=== PATIENT | female | born 1935 | race Caucasian/White ===

== ENCOUNTER 2020-01-05 16:39 | Inpatient (IN) | payer OTHER ==
[~2020-01-05] VITALS: Ht 152.4 cm; Wt 56.7 kg
[~2020-01-05 16:39] MED LIST: AMBIEN5 MG PO; AMLODIPINE BESYL5 MG PO; CYMBALTA30 MG PO; LEVOTHYROXINE0.1 MG PO; MIRTAZAPINE15 M2 PO; OMEPRAZOLE20 M2 PO; PREDNISONE5 MG PO; VITAMIN B12-FO1 EACH PO; VITAMIN D31000 IU PO
[2020-01-05] MEDS ORDERED: ELIQUIS2.5 M1 PO (17:47)
[2020-01-05] MEDS ORDERED: CYMBALTA60 MG PO (17:48)
[2020-01-05] MEDS ORDERED: LIPITOR80 MG PO (17:48)
[2020-01-05] MEDS ORDERED: WELLBUTRIN SR150 MG PO (17:49)
[2020-01-05] MEDS ORDERED: ISOSORBIDE30 MG PO (17:50)
[2020-01-05] MEDS ORDERED: COZAAR100 MG PO (17:51)
[2020-01-05] MEDS ORDERED: ZANAFLEX4 M1 PO (17:53)
--- NOTE | 2020-01-05 19:00 | NUR ---
LESTER YA a 84 year old F admitted via stretcher from the ADMITTING as a voluntary admission. Arrived on unit at 1900PM. ALLERGIES: NO KNOWN . Vital signs are: [id number] 144/68. The client signed the following forms with stated understanding: Authorization For The Release of Medical Information, Clothing List, Consent to Voluntary Admission and Hospitalization, Consent and Release Forms/Receipt of Rights, Acknowledgement of Advance Directive Information, Behavioral Health Consent Form, and Informed Consent of Medications. Admitted under the services of Dr. SUE MONIQUE,[facility]. A search was conducted and hazardous articles were removed. Client was oriented to the unit. MADHAVI AGUDELO
[2020-01-05 19:34] VITALS: BP 144/68
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
[2020-01-05 20:45] VITALS: BP 144/68
[2020-01-05 21:41] LABS: BILIRUBIN NEGATIVE; BLOOD TRACE-INTACT (NEGATIVE); CLARITY CLOUDY (CLEAR); COLOR YELLOW (YELLOW); GLUCOSE NEGATIVE; KETONE NEGATIVE; PH 6.5 (4.5-8.0)
[2020-01-05 21:42] LABS: LEUKO ESTERASE 3+ (NEGATIVE); NITRITE NEGATIVE (NEGATIVE); UROBILINOGEN 0.2 E.U./dl (0.0-1.0)
[2020-01-05 21:43] LABS: RBC 0-2 rbc/hpf (0-2)
[2020-01-05 21:45] LABS: WBC 51-100 wbc/hpf (0-5)
[2020-01-05 21:46] LABS: YEAST TRACE
[2020-01-05 21:47] LABS: BACTERIA 2+
--- NOTE | 2020-01-05 22:00 | NUR ---
DR CARLOS HERE EARLIER TO SEE CLIENT.
--- NOTE | 2020-01-05 22:58 | NUR ---
DR CARLOS HERE EARLIER TO SEE CLIENT
--- NOTE | 2020-01-06 01:26 | NUR ---
P--DELUSIONS, CONFUSION, ANGER I--PRESENTED REALITY, ORIENTED TO DATE TIME AND PLACE, EMOTIONAL SUPPORT R--YOU'RE A LIAR, I HAVE BEEN HERE ALL DAY, I CAME LAST NIGHT, MY ROOM IS DOWN THE RENTERIA, I NEVER SAID I WAS GOING TO KILL MYSELF, AGAIN YOU'RE ALL LIARS. GET ME OUT OF HERE. P--EMOTIONAL SUPPORT, REDIRECTION, CONTINUE TO MONITOR FOR HER CHANGES
--- NOTE | 2020-01-06 06:00 | NUR ---
WOUND CARE HERE TO SEE CLIENT. INTERMITTENT PERIODS OF SARCASM CONTINUE
[2020-01-06 06:31] LABS: BASO # 0.1 10*3/uL (0.0-0.1); BASO % 0.8 % (0.0-1.0); EOS # 0.3 10*3/uL (0.0-0.4); EOS % 2.6 % (1.0-4.0); HEMATOCRIT 39.7 % (37.0-47.0); LYMPH # 3.3 10*3/uL (1.3-4.4); LYMPH % 29.4 % (27.0-41.0); MEAN CELL VOLUME 93.6 fl (81.0-99.0); MEAN CORPUSCULAR HGB 30.2 pg (27.0-31.0); MEAN CORPUSCULAR HGB CONC 32.2 g/dl (33.0-37.0); MEAN PLATELET VOLUME 9.6 fl (9.6-12.3); MONO # 1.2 10*3/uL (0.1-1.0); MONO % 10.3 % (3.0-9.0); NEUT # 6.4 10*3/uL (2.3-7.9); NEUT % 56.1 % (47.0-73.0); PLATELET COUNT AUTOMATED 291 10*3/uL (130-400); RED BLOOD COUNT 4.24 10*6/uL (4.10-5.10); RED CELL DISTRI WIDTH 12.3 % (0-14.5); WHITE BLOOD COUNT 11.3 10*3/uL (4.8-10.8)
--- NOTE | 2020-01-06 06:34 | NUR ---
SLEPT INTERMITTENTLY PAST 2300PM. VERY SARCASTIC AND RUDE WHEN TALKING TO STAFF. WILL START OF NICE AND INTERATIVE AND CHANGE QUICKLY. LIKES TO TALK ABOUT HER DOG RUBIA
[2020-01-06 06:51] LABS: CREATININE 1.23 mg/dL (0.55-1.02); POTASSIUM 3.8 mmol/L (3.5-5.1)
[2020-01-06 06:59] LABS: THYROID STIM HORMONE (HS) 5.19 uIU/ml (0.358-4.75)
--- NOTE | 2020-01-06 07:29 | NUR ---
PHYSICAL THERAPY PT screen and eval received, will follow. Thank you. Dean Crane SPT Nubia Zhou PT
[2020-01-06 07:54] VITALS: BP 139/72
[2020-01-06 07:58] LABS: VITAMIN D, 25-HYDROXY 51.6 ng/mL (30-100)
--- NOTE | 2020-01-06 10:56 | NUR ---
DR. RAMÍREZ ON UNIT TO ASSESS PT.
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
--- NOTE | 2020-01-06 11:45 | NUR ---
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 Precautions include bilateral drop foot, +2 mod assist transfer assist, assist with feeding d/t LUE apparent dog bite wound and limited AROM/strength. Recommend OT and 24 hr supervision/assist or SNF upon d/c. Thank you for this referral. Anna Resendiz OTR/L
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
--- NOTE | 2020-01-06 15:05 | NUR ---
Pt has been sleeping soundly. Pt nnable to participate in psychosocial assessment. Assessment started by chart review and information from treatment team. Will plan to meet with pt at another time.
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
--- NOTE | 2020-01-06 16:43 | NUR ---
P-DEPRESSED MOOD "OH YEAH I ALWAYS FEEL THAT WAY." HOPELESS, "OH SORT OF." I-ORIENTATION, MOOD AND BEHAVIORS ASSESSED. ASSESSED FOR SI/HI, INTENT OR PLAN. MEDICATIONS ADMINISTERED PER PHYSICIAN'S ORDERS. ENCOURAGED PT TO ATTEND AND PARTICIPATE IN GROUPS. R-PT IS ALERT AND ORIENTED TO PERSON, PLACE, TIME AND SITUATION. MOOD IS DEPRESSED. NO BEHAVIORS NOTED OR REPORTED. DENIED SI/HI. MEDICATION COMPLIANT. ATTENDED GROUP. ADLS WITH 2 STAFF, 1 PERSON ASSIST WITH MEALS. P-PLAN TO CONTINUE CURRENT TREATMENT, CONTINUE TO MONITOR MOOD AND BEHACIORS. PROVIDE APPROPRIATE REORIENTATION AND REDIRECTION NEEDED.
[2020-01-06 20:06] VITALS: BP 137/73
--- NOTE | 2020-01-06 22:51 | NUR ---
P-ANGRY/IRRITABLE DURING HOC, ACCUSATORY, ARGUMENTATIVE. I-PROVIDE 1:1 WITH THERAPEUTIC INTERVENTIONS. PROVIDE SUPPORT. ENCOURAGE MEDICATION COMPLIANT AND EDUCATE. MONITOR SLEEP. R-PATIENT ALERT AND ORIENTED X4. PT CALM AND INTERACTIVE WHILE SITTING IN DINING ROOM FOR HS SNACK AND MEDICATION PASS, STATED THAT SHE FEELS DEPRESSED BECAUSE OF THE LACK OF INDEPENDENCE SHE HAS AND BEING UNABLE TO PROVIDE FOR HERSELF. SUPPORT PROVIDED. PT DENIES SI/HI AND CONTRACTED FOR SAFETY. PT ALSO DENIED HALLUCINATIONS AND PAIN, NO NOTED RESPONDING TO INTERNAL STIMULI. PT MEDICATION COMPLIANT WITHOUT DIFFICULTY AFTER REVIEW. PT THEN REQUESTED TO GO TO BED, BUT STAFF WENT TO ASSIST HER TO HER ROOM AND ASKED IF SHE WOULD LIKE A SHOWER, PATIENT REFUSED AND BECAME EXTREMELY AGITATED, ARGUMENTATIVE, AND ACCUSATORY. PT STATED THE STAFF WAS INCOMPETENT, WILL NOT TELL HER WHAT TO DO, AND THAT THEY WILL END UP JUST HURTING HER. THIS RN ATTEMPTED TO PROVIDE DE-ESCALATION TECHNIQUES WITH NO SUCCESS, PT STATED DONT TALK TO ME LIKE THAT, I KNOW MORE THAN ALL OF YOU COMBINED, YOU DONT KNOW HOW TO TAKE CARE OF ME, ALSO YOUR HAND RAIL IN THE BATHROOM IS ON THE WRONG SIDE AND THE TOILET WAS TOO CLOSE TO THE GROUND. X2 STAFF WITH ALL CARE DUE TO CONTINUED ARGUMENTATIVE/ACCUSATORY BEHAVIORS DESPITE REDIRECTION ATTEMPTS. PT STATED "I KNOW YOU GUYS ARE DOING THE BEST YOU CAN, IM JUST A MEAN WOMAN, IF YOU HAD HIP SURGERIES LIKE I DID, YOU'D BE A MEAN WOMAN TOO. PT USES A POONAM CHAIR WHILE OUT OF BED, CONTINENT OF BOWEL AND BLADDER. PT CURRENTLY LAYING DOWN WITH EYES CLOSED, RESPIRATIONS EASY AND REGULAR, NO DISTRESS NOTED. P-CONTINUE TO MONITOR MOOD AND BEHAVIORS. MAINTAIN Q 15 MIN CHECKS AND PRN FOR SAFETY.
--- NOTE | 2020-01-07 03:45 | NUR ---
24 HOUR CHART CHECK COMPLETED.
--- NOTE | 2020-01-07 05:36 | NUR ---
PATIENT OBSERVED ON Q 15 MIN CHECKS TO HAVE SLEPT APPROX 6 HOURS UNINTERRUPTED. NO DISTRESS NOTED.
[2020-01-07 07:01] VITALS: BP 139/70
--- NOTE | 2020-01-07 09:40 | NUR ---
DR RAMÍREZ AND DR SWANSON ON UNIT TO ASSESS PATIENT, UPDATE PROVIDED.
--- NOTE | 2020-01-07 11:30 | NUR ---
P: ANGRY/IRRITABLE, LABILE, ACCUSATORY OF STAFF DURING HANDS ON CARE, TALKED WITH YAAKOV JONES CNP THIS MORNING STATING "I WANT TO GET UP" MENTAL HEALTH WORKERS WENT TO ASSIST PATIENT OUT OF BED AND THEN STATED "I DON'T WANT TO GET OUT OF BED RIGHT NOW. PATIENT ASSISTED OUT OF BED PRIOR TO LUNCH. PATIENT WAS ANGRY/IRRITABLE, LABILE, ACCUSATORY OF STAFF DURING HANDS ON CARE, DID NOT LIKE LUNCH, REORDERED LUNCH PER REQUEST. ARGUEMENTATIVE WITH STAFF AND YELLING AT OTHER PATIENTS WALKING BY. I: ONE ON ONE FOR EMOTIONAL SUPPORT, 3 PERSON ASSIST WITH HANDS ON CARE, PROVIDED SPACE, ENCOURAGE MEAL INTAKES, DISTRUBIVE TO OTHERS IN DINING ROOM, ASSISTED TO QUIET ROOM WITH LOW SIMULI, REDIRECTION/ORIENTATION AND PROVIDED SPACE. R: INEFFECTIVE. PATIENT CONTINUES TO BE LABILE, SPACE PROVIDED EFFECTIVE. PATIENT IS ALERT X3; ABLE TO VOICE NEEDS. MOOD LABILE, ARGUEMENTATIVE, ANXIOUS AND DEMENDING. DENIES HALLUCINATIONS, DELUSIONS, HI OR PAIN. VOICING PASSIVE WISH BECAUSE PATIENT STATES "NO ONE LIKES ME", DENIES HI. MEDICATION COMPLAINT. Q 15 MINUTE SAFETY CHECKS MAINTAINED. 2-3 PERSON ASSIST WITH ACTIVITITIES OF DAILY LIVING, INCONTINENT OF BOWEL AND BLADDER. SET UP FOR MEALS WITH ASSIST NEEDED. UP IN POONAM CHAIR FOR COMFORT. P: CONTINUE TO MONITOR MOOD, VERBAL AND PHYSICAL AGGRESSION. PROVIDE ONE ON ONE, REDIRECTION/ORIENTATION, OFFERED SNACK AND DRINKS. CHANGE OF ENVIRONMENT WITH LOWE STIMULI AND PROVIDE SPACE NEEDED.
--- NOTE | 2020-01-07 14:54 | NUR ---
P: VERBALLY AGGRESSIVE, YELLING AT SON ON THE PHONE ON TOP OF LUNGS, DISTRUBIVE TO EVERYONE ON THE UNIT. TEARFUL,ANGRY AND LABILE. ACCUSATORY OF STAFF. I: ONE ON ONE, REMOVE PHONE FROM PATIENT AND PROVIDED ONE ON ONE EMOTIONAL SUPPORT WITH SON REGARDING PATIENT'S CONDITION AND OUTBURST. SON STATED "I'M USED TO THIS" AND PROVIDING SPACE. R: INEFFECTIVE. PATIENT CONTINUES TO ESCULATE. PRN ATIVAN 1MG IM IN LEFT DELTOID. SPACE PROVIDE WITH CLOSE MONITORING. P: CONTINUE TO MONITOR PATIENT'S BEHAVIOR, EFFECTIVENESS OF ATIVAN AND WILL COMPLETE DRESSING CHANGE TO RIGHT FOREARM WHEN PATIENT IS CALM.
--- NOTE | 2020-01-07 15:54 | NUR ---
PRN ATIVAN EFFECTIVE. PATIENT CALMED DOWN, ATE MEAL WITHOUT DIFFICULTY AND ALLOW NURSE TO DO TREATMENT TO ARM.
--- NOTE | 2020-01-07 15:55 | NUR ---
Shift chart check completed.
--- NOTE | 2020-01-07 17:05 | NUR ---
PRN TYLENOL 650 MG PO GIVEN FOR PAIN MANAGEMENT PRIOR TO BED BATH.
--- NOTE | 2020-01-07 18:00 | NUR ---
PRN TYLENOL EFFECTIVE, NO COMPLAINTS OF PAIN DURING BEDBATH AND HANDS ON CARE. PATIENT TALKATIVE WITH STAFF WITH CALM DEMEANOR.
[2020-01-07 20:00] VITALS: BP 126/68
--- NOTE | 2020-01-08 00:29 | NUR ---
P-ANGRY/IRRITABLE DURING HOC, ACCUSATORY, ARGUMENTATIVE. I-PROVIDE 1:1 WITH THERAPEUTIC INTERVENTIONS. PROVIDE SUPPORT. ENCOURAGE MEDICATION COMPLIANT AND EDUCATE. MONITOR SLEEP. R-PATIENT ALERT AND ORIENTED X4. PT IN ROOM AND BED SINCE BEGINNING OF SHIFT, ISOLATIVE, CALM. DURING 1:1 PATIENT STATED SHE WAS DOING GOOD, THAT SHE HAD A SHOWER, AND TALKED ABOUT HER DOG. PT DENIES SI/HI, HALLUCINATIONS, OR PAIN. NO NOTED RESPONDING TO INTERNAL STIMULI. PT MEDICATION COMPLIANT WITHOUT DIFFICULTY AFTER REVIEW. ATE 100% OF HS SNACK. PT THEN REQUESTED TO GO TO THE BATHROOM BUT STAFF WENT TO ASSIST HER, PT BECAME IRRITABLE, ARGUMENTATIVE, AND ACCUSATORY. PT STATED THE STAFF DIDNT KNOW WHAT THEY WAS DOING, WE WILL END UP HURTING HER, AND THE HOSPITAL MUST NOT HAVE ENOUGH MONEY BECAUSE THE PLACE IS UGLY. PT UNABLE TO BE REDIRECTED, 2X STAFF CONTINUED WITH ALL CARE DUE TO ACCUSATORY BEHAVIORS. SRINIVAS REQUIRED DUE TO PT NOT PROVIDING ANY ASSISTANCE WITH TRANSFERS. PT CONTINENT OF BOWEL AND BLADDER. PT CURRENTLY LAYING DOWN WITH EYES CLOSED, RESPIRATIONS EASY AND REGULAR, NO DISTRESS NOTED. P-CONTINUE TO MONITOR MOOD AND BEHAVIORS. MAINTAIN Q 15 MIN CHECKS AND PRN FOR SAFETY.
--- NOTE | 2020-01-08 05:52 | NUR ---
PATIENT OBSERVED ON Q 15 MIN CHECKS TO HAVE SLEPT APPROX 8 HOURS UNINTERRUPTED. NO DISTRESS NOTED.
--- NOTE | 2020-01-08 06:05 | NUR ---
24 HOUR CHART CHECK COMPLETED.
[2020-01-08 07:53] VITALS: BP 131/67
--- NOTE | 2020-01-08 08:42 | NUR ---
DURING MED PASS PT ACCUSATORY TO STAFF ABOUT GIVING HER WRONG MEDICATIONS. PT TOLD THIS NURSE I URINATED IN HER WATER. ASSURED THE PT I DID NOT URINATE IN HER WATER AND EXPLAINED HER MEDICATIONS PRIOR TO GIVING HER MEDICINE AND AFTER MEDICATIONS. PT TOOK MEDICATIONS WITHOUT DIFFICULTY. PT WANTED UP TO CHAIR THEN ONCE UP STATED SHE WANTED IN BED. PT STATED SHE WAS NOT IN THE HOSPITAL. PT SCREAMING GET ME OUT OF HERE. 1:1 PROVIDED FOR THERAPEUTIC COMMUNICATION AND WA SINEFFECTIVE. PT REFUSED TO ANSWER ANY QUESTIONS. PT CONTINUES TO STATE "I NEVER SEEN MORE UGLIER GIRLS IN MY LIFE. YOU CANT DO THIS WITHOUT GETTING ARRESTED". ASKED PT TO SCOOT HER BUTTOCKS BACK IN THE CHAIR SO SHE COULD SIT UPRIGHT AND PT YELLED "NO". NOT COMPLIANT WITH FALL PROTOCOLS. COMBATIVE DURING HOC. PT THREW CALL VARELA ACROSS THE ROOM. WILL CONTINUE TO APPROACH PT AND PROVIDE 1:1 FOR THERAPEUTIC COMMUNICATION. PT YELLS OUT "DON". PT WILL CONTINUE TO BE MONITORED WITH Q15 MINUTE SAFETY CHECKS.
--- NOTE | 2020-01-08 10:00 | NUR ---
DR AGRAWAL ON UNIT TO ASSESS PT, UPDATE PROVIDED.
--- NOTE | 2020-01-08 13:49 | NUR ---
PT REFUSED DRESSING CHANGES TODAY. WILL REATTEMPT AT A LATER TIME. PT STATED "I DONT NEED ANY DRESSING CHANGES FATASS".
[2020-01-08 19:51] VITALS: BP 117/62
--- NOTE | 2020-01-08 20:23 | NUR ---
AT AT 1945 C/O HEADAche. resting in bed. was medicated with prn tylenol 650mg for h/a. med has been helpful.
--- NOTE | 2020-01-08 22:37 | NUR ---
24 HR chart check completed.
--- NOTE | 2020-01-09 02:32 | NUR ---
PATIENT HAS BEEN IN BED SINCE ONSET OF SHIFT. REMAINS ALERT AND VERBAL. IS MED COMPLIANT. HAS BEEN AWAKE ALL SHIFT. AT TIMES YELLING OUT FOR HER . BECOMES AGGITATED AND VERBALLY AGGRESSIVE WHEN ASKED A QUESTION. OTHERWISE MOOD IS CALM AND PURPOSEFUL. NO SI/HI VOICED. NO HALLUCINATIONS OR DELUSIONS. IS CONTINENT OF BOWEL AND BLADDER. WILL CONTINUE WITH 1:1, REDIRECTION, AND MED COMPLIANCE.
--- NOTE | 2020-01-09 03:28 | NUR ---
PATIENT YELLING OUT. NURSING STAFF X 2 WENT TO CHECK ON PATIENT. PATIENT YELLING OUT FOR "KRISTI". PATIENT REORIENTED TO PLACE AND PATIENT UPSET STATING "YOUR A LIAR. YOU KEEP SAYING I'M IN THE HOSPITAL AND I'M MY OWN BED". PATIENT ARGUMENTATIVE WITH NURSING STAFF AND YELLING "GET OUT. JUST GET OUT". NURSING STAFF ATTEMPTING TO MEET PATIENT NEEDS AND PATIENT STATING "JUST GET OUT AND IT WILL BE YOUR FAULT IF I BREAK MY DAMN LEG". PATIENT REFUSED TO LET NURSING STAFF ASSIST WITH ANYTHING. PATIENT STATING "THIS IS NOT MY DAMN BED. WHO WOULD HAVE A BED LIKE THIS? I DON'T HAVE A BED LIKE THIS". PATIENT STATING TO NURSING STAFF "LOOK AT MY HAND. THERE IS BLOOD COMING OUT EVERYWHERE. JUST DON'T DO NOTHING. JUST STARE AT IT". THIS NURSE ATTEMTPED TO SHOW PATIENT THAT DRESSING WAS CLEAN, DRY, AND INTACT WITH NO DRAINAGE. PATIENT STATING "SURE YOU DON'T SEE THE BLOOD. YOU WOULD SAY THAT". PATIENT BEGAN NAME CALLING AND ATTEMPTING TO MIMIC STAFF STATING "YOU JUST SOUND LIKE YOUR FROM THE BOONIES". NURSING STAFF LEFT ROOM AND PATIENT IN BED RESTING SAFELY IN BED.
--- NOTE | 2020-01-09 06:06 | NUR ---
PATIENT HAS NOT SLEPT ALL NIGHT. sHE HAS BEEN IN BED BUT NOT SLEEPING.
[2020-01-09 08:00] VITALS: BP 126/58
--- NOTE | 2020-01-09 08:01 | NUR ---
OT NOTE Prior to OT session, therapist called U and talked to nurse Shamar and got permission to treat pt. PHYSICAL DAMAGE APPRAISER and nursing both present for observation only. Upon arrival pt was laying supine in bed agreeable to 32 minute OT session. Identified by name and date of with no complaints. Transfer supine to EOB MaxA x2. UB and LB dressing both attempted educated pt on roger dressing techniques, pt verbalized understanding however still required MaxA. Throughout sitting EOB pt presented with P-/P+ sit balance. Stand-pivot from EOB to dmitry chair MaxA x2 with assist for advancing RLE. Pt was wheeled to big bathroom due to pts request. Stand pivot from dmitry chair to commode maxA x2 with asistance for advancing RLE. Clothing management and hygiene both MaxA x2. Sit-stand from commode back to dmitry chair MaxA x2 with asistance for advancing RLE. Pt was wheeled back to dining butcher for breakfast. Pts breakfast tray arrived requiring max to set up. Pt was supervision when feeding self finger foods using LUE. Pt was able to drink container of juice with straw, however required cup with lid and straw for coffee due to spillage, once given cup with lid pt was bale to drink coffee with supervision. Attempted to have pt fee with utensils, however pt refused all food that required usinf utensils. Pt was left in dining butcher with alarm active and MHW present. Continue POC when able. JEET Bauman/S CARMENZA Zayas/JEET Marks/S
--- NOTE | 2020-01-09 08:30 | NUR ---
Treatment Plan meeting was held this a.m. with Dr. Tesfaye, YENIFER Henley, RN, AT, ROUTE INSPECTOR-S and Truck Driver'S Offsider. Plan for discharge Next Week. Pt. will return home at discharge.
--- NOTE | 2020-01-09 09:33 | NUR ---
DR RAMÍREZ ON UNIT TO ASSESS PT, UPDATE PROVIDED.
--- NOTE | 2020-01-09 11:39 | NUR ---
AM GROUP PT WAS PRESENT FOR MORNING GROUP THERAPY RECLINED IN A POONAM CHAIR SLEEPING. PT WAS REMOVED BY NURSING STUDENTS FOR A SHOWER AND DID NOT RETURN TO THE DAYROOM.
--- NOTE | 2020-01-09 11:50 | NUR ---
SPEECH PATHOLOGY Nursing screen completed. Speech pathology services do not appear indicated at this time however this dept. will remain available should future needs arise. GUILLE SIMPSON MSCCC-RESIDENT INTERN
--- NOTE | 2020-01-09 13:49 | NUR ---
DR BLACKBURN ON UNIT TO ASSESS PT, UPDATE PROVIDED.
--- NOTE | 2020-01-09 15:19 | NUR ---
Unable to reach pt's by phone. Left a voicemail message for pt's son Zacarias Delgado requesting a return call to discuss discharge needs of pt.
--- NOTE | 2020-01-09 15:38 | NUR ---
PM GROUP PT ATTENDED AFTERNOON GROUP THERAPY AND PARTICIPATED BY COLORING AND SOCIALIZING WITH NURSING STUDENTS. PT EXHIBITED NO ADVERSE BEHAVIORS WHILE IN GROUP.
--- NOTE | 2020-01-09 17:50 | NUR ---
PT ALERT TO PERSON WITH MEMORY GAPS AND CONFUSION NOTED. CALM MOOD TODAY. PT INTERACTIVE WITH STAFF AND NURSING STUDENTS. PT COMPLIANT WITH MEDICATIONS. PARTICIPATING WITH GROUPS. NO HALLUCINATIONS OR DELUSIONS NOTED. NO COMBATIVENESS NOTED DURING HOC. PT ATTEMPTED TO HELP WITH STANDING, PIVOTING, AND TRANSFERRING. PT JOKING AND TALKING TO STAFF THROUGHOUT THE SHIFT. 1:1 PROVIDED FOR THERAPEUTIC COMMUNICATION. PT STATED SHE WAS TRYING TO STARVE HERSELF; HOWEVER SHE HAS GIVEN UP AND DECIDED TO END THAT. INTAKE TODAY HAS BEEN FAIR. 3 DAY CALORIE COUNT ORDERED TO MONITOR INTAKES. NO ACCUSATORY STATEMENTS MADE THIS SHIFT. WILL CONTINUE TO MONITOR BEHAVIORS WITH Q15 MINUTE SAFETY CHECKS AND PROVIDE 1:1 WHEN NEEDED. SEE [facility] FLOWSHEET FOR SPECIFIC MONITORING.
[2020-01-09 19:10] VITALS: BP 118/65
--- NOTE | 2020-01-09 23:10 | NUR ---
Patient alert to person with confusion noted. Memory deficits noted. Mood calm,cooperative and interactive with staff and other patients. Patient denies any SI/HI or hallucinations. No s/s of any responding to internal stimuli noted at this time. Patient compliant with HS medications without any difficulty. Provided 1:1 for emotional support. Redirected/reoriented when needed. Plan to continue to encourage medication compliance. Also continue to offer emotional support and redirect/reorient when needed/appropriate. Will continue to monitor moods/behaviors. Q 15 minute safety checks continued and maintained. See [facility] flowsheet for further documentation.
--- NOTE | 2020-01-10 06:41 | NUR ---
Patient slept approx. 6 hours throughout shift. Q 15 minute safety checks continued and maintained.
[2020-01-10 07:44] VITALS: BP 128/60
--- NOTE | 2020-01-10 07:50 | NUR ---
OT NOTE Prior to OT session therapist called U and talked to nurse Lopez and got permission to treat pt. LAUNDRY OPERATOR WASH ROOM and nursing both present for observation only. Upon arrival pt was seated in dmitry chair in recliner eating breakfast, agreeable to 15 minute OT session. Pt was supervision for eating finger foods. INUPIAT to stab food with fork using LUE. SBA to bring fork to mouth. Supervision to drink juice and coffee out of cup with lid and straw. Pt required verbal prompts to take bites of food and sips of juice with good carry over. Pt was left in dmitry chair with alarm active and MHW present. Continue POC when able. JEET Bauman/CARMENZA Bhatt/Troy
--- NOTE | 2020-01-10 08:30 | NUR ---
Discharge Plans discussed Prior to Music Director arrival to Unit. Plan for discharge Next Week. Pt. came to [facility] from home. Asphalt Paver to reach out to family today to discuss discharge options.
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
--- NOTE | 2020-01-10 10:53 | NUR ---
DR AGRAWAL ON UNIT TO ASSESS PT, UPDATE PROVIDED.
--- NOTE | 2020-01-10 11:48 | NUR ---
AM GROUP PT DID NOT ATTEND MORNING GROUP THERAPY. PT WAS IN BED RESTING.
--- NOTE | 2020-01-10 15:49 | NUR ---
PM GROUP PT DID NOT ATTEND AFTERNOON GROUP THERAPY.PT WAS IN BED RESTING.
--- NOTE | 2020-01-10 15:59 | NUR ---
PATIENT ALERT TO PERSON AT THIS TIME. PATIENT IS SAD AND TEARFUL STATING SHE MISSES HER DOG ROWDY. PATIENT STATES SHE IS FEELING DEPRESSED AND HOPELESS. PATIENT DENIES SI/HI. PATIENT DENIES ANY HALLUCINATIONS OR DELUSIONS AND DOES NOT APPEAR TO BE RESPONDING TO ANY INTERNAL STIMULI. PATIENT IS ISOLATIVE TO HER ROOM. PATIENT IS PARTICIPATIVE AND INTERACTIVE DURING ASSESSMENT. ONE ON ONE PROVIDED FOR EMOTIONAL SUPPORT, SPACE PROVIDED NEEDED. MEDICATION COMPLIANT WITH EDUCATION. 2 ASSIST WITH ACTIVITIES OF DAILY LIVING. INCONTINENT OF BLADDER CONTINENT OF BOWEL. SET UP FOR MEALS. FAIR INTAKES WITH ADEQUATE FLUIDS. PATIENT IS A 2 ASSIST TO TRANSFER TO [facility]. ENCOURAGE PATIENT TO PARTICIPATE IN GROUP ACTIVITIES. ENCOURAGE PATIENT TO REMAIN MEDICATION COMPLIANT. Q15 MINUTE SAFETY CHECKS MAINTAINED. WILL CONTINUE TO MONITOR TO MOODS/BEHAVIORS.
[2020-01-10 20:04] VITALS: BP 145/70
--- NOTE | 2020-01-11 00:39 | NUR ---
P-ANGRY/IRRITABLE, ACCUSATORY. I-PROVIDE 1:1 WITH THERAPEUTIC INTERVENTIONS. PROVIDE SUPPORT. ENCOURAGE MEDICATION COMPLIANT AND EDUCATE. MONITOR SLEEP. R-PATIENT ALERT AND ORIENTED X4. PT IN DINING ROOM UP TO A POONAM CHAIR WATCHING TV AND EATING SNACK AT BEGINNING OF SHIFT, ISOLATIVE TO SELF. UPON APPROACH PT IRRITABLE AND ACCUSATORY TOWARD STAFF WHEN HER IMMEDIATE DEMANDS WERE NOT MET, STATED "I WANT TO GO TO BED NOW, NONE OF YOU WILL TAKE CARE OF ME". PT MINIMALLY RECEPTIVE TO REDIRECTION OR SUPPORT WHEN PROVIDED, BECOMES SARCASTIC/ARGUMENTATIVE. 2X STAFF WITH ALL CARE CONTINUED. PT DENIES SI/HI, HALLUCINATIONS, OR PAIN. NO NOTED RESPONDING TO INTERNAL STIMULI. PT MEDICATION COMPLIANT WITHOUT DIFFICULTY AFTER REVIEW. PT COOPERATIVE WITH SRINIVAS MCRAE/X2 STAFF ASSISTANCE WITH TRANSFERS, CONTINENT OF BOWEL AND BLADDER. PT CURRENTLY LAYING DOWN WITH EYES CLOSED, RESPIRATIONS EASY AND REGULAR, NO DISTRESS NOTED. P-CONTINUE TO MONITOR MOOD AND BEHAVIORS. MAINTAIN Q 15 MIN CHECKS AND PRN FOR SAFETY.
--- NOTE | 2020-01-11 05:26 | NUR ---
24 HOUR CHART CHECK COMPLETED.
--- NOTE | 2020-01-11 05:36 | NUR ---
PATIENT OBSERVED ON Q 15 MIN CHECKS TO HAVE SLEPT APPROX 6 HOURS UNINTERRUPTED. NO DISTRESS NOTED.
--- NOTE | 2020-01-11 07:40 | NUR ---
OT NOTE Prior to session therapist called U and talked to nurse Garcia to get permission to treat pt. RUBBER STAMP ASSEMBLER and nursing both present for observation only. Upon arrival pt was laying supine agreeable to 25 minute OT session. Identifed by name and date of with no complaints. Transfer supine to EOB MaxA x2. Stand pivot from EOB to dmitry chair MaxA x2. Pt wheeled down to dining butcher. PROM completed on LUE in all planes X10. Pt set up assist for breakfast was able to bring fork to mouth using LUE. Pt was able to drink from cup with straw using LUE. Pt left in dining butcher with alarm active and MHW present. Continue d/c recommended SNF. JEET Bauman/CARMENZA Bhatt/Troy
[2020-01-11 07:59] VITALS: BP 145/70
--- NOTE | 2020-01-11 08:30 | NUR ---
Treatment Plan meeting was held this a.m. with Dr. Tesfaye via telephone, DRIER ATTENDANT Lory, RN, AT, PRESS DEPARTMENT MANAGER-S and Continuous Improvement Coordinator in attendance. Plan for discharge Next Week. Pt. will return home with Family at Discharge.
--- NOTE | 2020-01-11 10:43 | NUR ---
DR RAMÍREZ ON UNIT TO ASSESS PATIENT, UPDATE PROVIDED.
--- NOTE | 2020-01-11 11:48 | NUR ---
AM GROUP PT DID NOT ATTEND MORNING GROUP THERAPY. PT WAS IN BED RESTING.
--- NOTE | 2020-01-11 16:00 | NUR ---
PM GROUP PT DID NOT ATTEND AFTERNOON GROUP THERAPY. PT WAS IN BED RESTING.
--- NOTE | 2020-01-11 17:58 | NUR ---
P: SADNESS, DEPRESSION, ANGRY, IRRITABLE. I:REDIRECTION, 1:1 FOR EMOTIONAL SUPPORT, SPACE PROVIDED NEEDED. EDUCATION WITH MEDICATIONS AND SAFETY PROVIDED. R: EFFECTIVE. PATIENT HAS BEEN INTERACTING WITH PEERS, IS CALM, PARTICIPATIVE AND STATES SHE IS FEELING BETTER. PATIENT DOES CONTINUE TO MISS HER DOG, ROWHARSHA. PATIENT IS A 2 ASSIST WITH TRANSFERS. PATIENT IS A 1-2 ASSIST WITH ACTIVITIES OF DAILY LIVING. PATIENT IS MEDICATION COMPLIANT WITH EDUCATION. INTAKES ARE FAIR WITH ADEQUATE FLUIDS. P: CONTINUE TO PROVIDE 1:1 FOR EOMOTIONAL SUPPORT, PROVIDE SPACE NEEDED. REDIRECT APPROPRIATE. CONTINUE TO ENCOURAGE MEDICATION COMPLIANCE, PO INTAKE, PARTICIPATING IN GROUP ACTIVITIES. WILL CONTINUE TO MONITOR Q15 MINUTE SAFETY CHECKS.
[2020-01-11 20:00] VITALS: BP 142/78
--- NOTE | 2020-01-11 21:55 | NUR ---
P-DEPRESSED MOOD I-PROVIDE 1:1 WITH THERAPEUTIC INTERVENTIONS. PROVIDE SUPPORT. ENCOURAGE MEDICATION COMPLIANCE AND EDUCATE. MONITOR SLEEP. R-PATIENT ALERT AND ORIENTED X4. PT CALM, ISOLATIVE TO ROOM AND BED SINCE BEGINNING OF SHIFT. DURING 1:1 PATIENT WAS POLITE AND INTERACTIVE, STATED THAT SHE IS FEELING MISERABLE BECAUSE SHE IS WORRIED ABOUT HER DOG, AND PERSONAL THINGS GOING ON AT HOME WITH HER . PT PROVIDED SUPPORT WITH POSITIVE EFFECT. PT DENIES SI/HI, HALLUCINATIONS, OR PAIN. PT MEDICATION COMPLIANT WITHOUT DIFFICULTY AFTER REVIEW. PT COMPLIANT WITH HOC, NO AGITATION OR IRRITABILITY NOTED. PT X2 ASSIST/SRINIVAS WITH TRANSFERS AND CARE, ABLE TO MAKE NEEDS KNOWN, CONTINENT/INCONTINENT OF BOWEL AND BLADDER. PT CURRENTLY LAYING DOWN WITH EYES CLOSED, RESPIRATIONS EASY AND REGULAR, NO DISTRESS NOTED. P-CONTINUE TO MONITOR MOOD AND BEHAVIORS. MAINTAIN Q 15 MIN CHECKS AND PRN FOR SAFETY.
--- NOTE | 2020-01-12 03:39 | NUR ---
PATIENT RECEIVED PRN TYLENOL 650MG PO REQUESTED AT THIS TIME FOR C/O RIGHT SHOULDER AND ELBOW PAIN OF 10/10. NO OTHER COMPLAINTS NOTED AT THIS TIME.
--- NOTE | 2020-01-12 05:42 | NUR ---
PATIENT OBSERVED ON Q 15 MIN CHECKS TO HAVE SLEPT APPROX 1 HOUR THIS SHIFT, WHEN QUESTIONED TO WHY SHE WASNT SLEEPING TONIGHT PT STATED THAT SHE NAPPED TO MUCH DURING THE DAY YESTERDAY. PT ALSO STATED THE PRN TYLENOL GIVEN AT 0336 WAS MINIMALLY EFFECTIVE BUT DOESNT NEED ANYTHING FOR PAIN AT THE MOMENT. NO DISTRESS NOTED.
--- NOTE | 2020-01-12 05:56 | NUR ---
24 HOUR CHART CHECK COMPLETED.
--- NOTE | 2020-01-12 07:30 | NUR ---
PER CALL FROM ANAMARIA PT WILL NEED A PEER REVIEW. STATES DOCTOR WILL CALL THIS AM TO SET IT UP.
--- NOTE | 2020-01-12 07:45 | NUR ---
OT NOTE Prior to session therapist called U and talked to nursing to get permission to treat pt. Nursing present for obervation only. Upon arrival pt was sitting in dmitry chair agreeable to 15 minute OT session. Pt completed AAROM on LUE in all planes x10. Therapist applied stretching to RUE and right hand and digits and placed 2 wash rag in right hand to support hand and fingers and protect against skin breakdown. educated staff thatw wash rags were placed and if any discomfort came of pt, they may digard towels.Pt left in dmitry chair in dining butcher with alarm active and mhw present. Continue POC when able. JEET Bauman/CARMENZA Bhatt/[place]
[2020-01-12 07:54] VITALS: BP 132/54
--- NOTE | 2020-01-12 09:47 | NUR ---
DR MEDRANO CALLED IN AND WAS GIVEN INFORMATION TO CALL [facility] FOR PEER REVIEW. NUMBER PROVIDED.
--- NOTE | 2020-01-12 10:30 | NUR ---
Treatment Plan meeting was held this a.m. with Dr. Tesfaye RN, AT and Net Technical Architect. Plan for discharge Next Week. Pt. will return home at discharge.
--- NOTE | 2020-01-12 11:07 | NUR ---
DR. RAMÍREZ ON UNIT TO ASSESS PT.
--- NOTE | 2020-01-12 11:48 | NUR ---
AM GROUP PT DID NOT ATTEND MORNING GROUP THERAPY. PT WAS IN BED RESTING.
--- NOTE | 2020-01-12 14:43 | NUR ---
P: PATIENT IS AGITATED BECAUSE SHE IS TIRED TODAY. I: 1:1 FOR EMOTIONAL SUPPORT, SPACE PROVIDED NEEDED. PATIENT IS ENOCURAGED TO PARTICIPATE IN GROUP ACTIVIITES, PATIENT IS ENCOURAGED TO VERBALIZE THOUGHTS AND FEELINGS. R: EFFECTIVE. PATIENT PARTICIPATED IN GROUP ACTIVITY THIS AFTERNOON. PATIENT IS MEDICATION COMPLIANT WITH EDUCATION. PATIENT IS A 2 ASSIST FOR TRANSFERS, 1-2 ASSIST WITH ACTIVITIES OF DAILY LIVING. PATIENT IS CONTINENT OF BLADDER. PATIENT IS ALERT AND ORIENTED TO PERSON, PLACE, TIME AND SITUATION. PATIENT DENIES ANY SADNESS OR DEPRESSION. DENIES ANY ANXIETY. PATIENT IS AGITATED DUE TO BEING TIRED. PATIENT DENIES SUICIDAL AND HOMICIDAL IDEATION. P: CONTINUE TO MONITOR FOR BEHAIORS/MOOD. MAINTAIN Q15 MINUTE SAFETY CHECKS. PROVIDE 1:1 FOR EOMTIONAL SUPPORT AND PROVIDE SPACE NEEDED. CONTINUE TO ENCOURAGE MEDICATION COMPLIANCE. CONTINUE TO ENCOURAGE GROUP ACTIVITIES AND SOCIALIZATION WITH PEERS.
--- NOTE | 2020-01-12 14:50 | NUR ---
Pt was pleasant this AM during a group discussion about the benefits of pets. Pt shared about her dog Rowdy and expressed how much she loves and misses him. Pt interacted appropriately with her peers. Pt appeared to enjoy the conversation.
--- NOTE | 2020-01-12 15:23 | NUR ---
Received word from Nurse Practitioner Lory that Pt. insurance Denies Peer to Peer. Planned for Discharge Next Week. Call placed to Patient Son Zacarias and Explained Situation. Zacarias states that he will arrange for Pt. to discharge tommorow with her Family to pick her up and transport home. Notified Nursing Staff to Plan for discharge Tommorow.
--- NOTE | 2020-01-12 15:26 | NUR ---
Notified Dr. Tesfaye and Lory that Pt. Son will arrange for paper cup machine operator tommorow and was receptive to discharge after denial from Peer to Peer.
--- NOTE | 2020-01-12 15:48 | NUR ---
PM GROUP PT ATTENDED AFTERNOON GROUP THERAPY AND PARTICIPATED BY SOCIALIZING AND LISTENING TO MUSIC. PT WAS PLEASANT AND EXCITED TO HEAR THAT SHE WOULD BE DISCHARGED TOMORROW. PT EXHIBITED NO ADVERSE BEHAVIORS WHILE IN GROUP.
[2020-01-12 19:36] VITALS: BP 134/56
--- NOTE | 2020-01-12 23:21 | NUR ---
Patient alert to person with confusion noted. Memory deficits noted. Mood calm,cooperative and interactive with staff and other patients. Patient denies any SI/HI or hallucinations. No s/s of any responding to internal stimuli noted at this time. Patient compliant with HS medications without any difficulty. Provided 1:1 for emotional support. Redirected/reoriented when needed. Plan to continue to encourage medication compliance. Also continue to offer emotional support and redirect/reorient when needed/appropriate. Will continue to monitor moods/behaviors. Q 15 minute safety checks continued and maintained. See [facility] flowsheet for further documentation.
--- NOTE | 2020-01-13 05:26 | NUR ---
Patient slept 0 hours throughout shift. Q 15 minute safety checks continued and maintained.
--- NOTE | 2020-01-13 07:15 | NUR ---
OT NOTE Prior to session therapist called U and talked to nurse Jenn to get permission to treat pt. Nursing present for observation only. Upon arrival pt was laying supine in bed agreeable to 20 minute OT session. Identified by name and date of with no complaints at rest. maxA to [facility] socks. Transfer supine to EOB MaxA x2. sitting balance P- (retrograde posture) requiring maxA to correct. Stand pivot to dmitry chair maxA x2. Pt wheeled to dining butcher. AAROM completed to LUE in all planes X10. Passive stretching completed on R hand and digits. R hand started at full fist and was able to complete PROM about 25% open. Pt left in dining butcher in dmitry chair with alarm active and MHW present. Continue d/c recommended SNF. JEET Bauman/CARMENZA Bhatt/[place]
--- NOTE | 2020-01-13 07:44 | NUR ---
Patient eating breakfast in dining room with peers. Respirations easy and regular. Vital signs stable. No overt distress. RADHA PALOMARES
[2020-01-13 07:52] VITALS: BP 132/68
--- NOTE | 2020-01-13 08:30 | NUR ---
Treatment Plan meeting was held this a.m. with Dr. Tesfaye via telephone, YENIFER Henley RN, HAULAGE ENGINE OPERATOR-S and Key Punch Operator in attendance. Plan for discharge today. Pt. is to return home. Pt. has caregivers in the Home 12 Hrs per day. Lives with her . Mental Health Follow up with [facility] with Nurse Practitioner via telehealth Alejandra Ray 02/03/2020 9:45 a.m. Family is to call for appointment to Number [phone] and pick option zero and explain that she is having her appointment with Alejandra Ray. Instructions given to Nursing Staff to provide to the Family. Primary Care follow up with PCP Dr. Leon in the [facility] office 01/19/2020 1:30 p.m. Transportation is arranged with Family to Transport which was confirmed with the Son this a.m.
[2020-01-13] MEDS ORDERED: ARIPIPRAZOLE15 MG PO (09:20)
[2020-01-13] MEDS ORDERED: HYDROXYZINE HCL25 MG PO (09:20)
--- NOTE | 2020-01-13 10:00 | NUR ---
DR. BROWN NOTIFIED OF PT BEING DISCHARGED TODAY.
--- NOTE | 2020-01-13 10:47 | NUR ---
Orders received from Dr. Tesfaye for Home Health for Nurse and Wound Care. Pt. has used [email or web address] the Past and Son states he would like referral to them this discharge. Referral emailed due to phone issues to . Waiting for response after insurance is checked. Discharge Paperwork sent to [facility] Attn:
--- NOTE | 2020-01-13 11:38 | NUR ---
DR. NICOLE ON UNIT TO ASSESS PT.
--- NOTE | 2020-01-13 12:43 | NUR ---
PRN TYLENOL 650MG PO GIVEN AT 1243 PER PT REQUEST FOR C/O RIGHT HIP PAIN RATED LEVEL 8/10. WILL MONITOR FOR MEDICATION EFFECTIVENESS.
--- NOTE | 2020-01-13 13:42 | NUR ---
[facility] Unable to Accept Pt. due to out of Network with Insurance. Pt. [facility] Choice [facility]. Referral faxed to [phone].
--- NOTE | 2020-01-13 13:46 | NUR ---
[facility] will see Pt. Over the Weekend.
--- NOTE | 2020-01-16 15:40 | NUR ---
OCCUPATIONAL THERAPY CO-SIGN I approve of the Occupational Therapy notes written above. NATACHA BOGGS OTR/[place]
== END 2020-01-13 13:30 | disposition home or self-care (01) | DRG 885 ==
LOC: 3N 16:39
PROVIDERS: ADMIT Psychiatry & Neurology Psychiatry; ATTEND Psychiatry & Neurology Psychiatry
DX: F33.2 Major depressive disorder, recurrent severe without psychotic features (principal); R45.851 Suicidal ideations; K21.9 Gastro-esophageal reflux disease without esophagitis; F41.9 Anxiety disorder, unspecified; F63.81 Intermittent explosive disorder; I10 Essential (primary) hypertension; R41.9 Unspecified symptoms and signs involving cognitive functions and awareness; E03.9 Hypothyroidism, unspecified; E55.9 Vitamin D deficiency, unspecified; M35.3 Polymyalgia rheumatica; Z86.73 Personal history of transient ischemic attack (TIA), and cerebral infarction without residual deficits; S41.152A Open bite of left upper arm, initial encounter; W54.0XXA Bitten by dog, initial encounter; Y93.89 Activity, other specified; Y92.89 Other specified places as the place of occurrence of the external cause; Y99.8 Other external cause status; G47.00 Insomnia, unspecified